=== PATIENT | female | born 1980 | race African-American/Black ===

== ENCOUNTER 2017-02-15 05:39 | Emergency (ER) | payer MEDICAID, OTHER ==
[~2017-02-15] VITALS: Ht 180.3 cm; Wt 98.0 kg
[~2017-02-15 05:39] MED LIST: DEPO400I IM; PROM25TA5 PO; ZITH250T PO
[2017-02-15 05:41] VITALS: BP 139/84; PULSE 89; RESP 16; TEMP 98.5; O2SAT 97
[2017-02-15 05:52] VITALS: BP 132/74; PULSE 79; RESP 16; O2SAT 98
[2017-02-15] MEDS ORDERED: LOMO2.5T PO (06:11)
[2017-02-15] MEDS ORDERED: ZOFR4TAB3 SL (06:11)
[2017-02-15] MEDS ORDERED: DICY10 PO (06:11)
--- NOTE | 2017-02-15 06:11 | PD ---
HPI Chief Complaint: Abdominal Pain Time Seen by Provider: 05:55 Travel History International Travel<30 days: No Contact w/Intl Traveler<30days: No Traveled to known affect area: No History of Present Illness HPI 36 yo F c/o diarrhea and LUQ abdominal pain for approx 6 hours. Onset occurred while patient was asleep. Last PO intake was [place] food, no one else sick at home. No fever. No vomiting. No VD/VB. Pt concerned that symptoms may prevent her from working today. Severity moderate. PFSH Past Medical History Diminished Hearing: No Immunizations Current: Yes Tetanus Vaccination: < 5 Years Influenza Vaccination: Yes ?: Not LMP: 01/16/2017 : 2 Para: 2 Social History Alcohol Use: No Tobacco Use: No Substance Use: No Allergies-Medications (Allergen,Severity, Reaction): Coded Allergies: penicillin G (Unverified Allergy, Intermediate, Rash, 02/15/17) Reported Meds & Prescriptions Reported Meds & Active Scripts Active Lomotil (Diphenoxylate-Atropine) 2.5-0.025 Mg Tab 1 Tab PO Q6H PRN Zofran Odt (Ondansetron Odt) 4 Mg Tab 4 Mg SL Q8HR PRN Bentyl (Dicyclomine HCl) 10 Mg Cap 10 Mg PO QID Review of Systems Except as stated in HPI: all other systems reviewed are Neg General / Constitutional: No: Fever Physical Exam Narrative GENERAL: 36 yo F, WNWD, NAD SKIN: Warm and dry. HEAD: Atraumatic. Normocephalic. EYES: Pupils equal and round. No scleral icterus. No injection or drainage. ENT: No nasal bleeding or discharge. Mucous membranes pink and moist. NECK: Trachea midline. No JVD. CARDIOVASCULAR: Regular rate and rhythm. RESPIRATORY: No accessory muscle use. Clear to auscultation. Breath sounds equal bilaterally. GASTROINTESTINAL: Soft. No TTP at McBurney's point. Negative Urbano's sign. MUSCULOSKELETAL: Extremities without clubbing, cyanosis, or edema. No obvious deformities. NEUROLOGICAL: Awake and alert. No obvious cranial nerve deficits. Motor grossly within normal limits. Five out of 5 muscle strength in the arms and legs. Normal speech. PSYCHIATRIC: Appropriate mood and affect; insight and judgment normal. Data Data Last Documented VS Vital Signs Date Time Temp Pulse Resp B/P (MAP) Pulse Ox O2 Delivery O2 Flow Rate FiO2 02/15/17 06:20 02/15/17 05:52 79 16 98 Room Air 02/15/17 05:41 98.5 Vital Signs Date Time Temp Pulse Resp B/P (MAP) Pulse Ox O2 Delivery O2 Flow Rate FiO2 02/15/17 06:20 02/15/17 05:52 79 16 132/74 (93) 98 Room Air 02/15/17 05:41 98.5 89 16 139/84 (102) 97 Room Air Orders Orders Ed Discharge Order (02/15/17 06:13) MDM Medical Decision Making Medical Screen Exam Complete: Yes Emergency Medical Condition: Yes Medical Record Reviewed: Yes Differential Diagnosis Constipation, Gastritis, Acute Cholecystitis, Biliary Colic, Pancreatitis, GARCIA , Hepatitis, Bowel Obstruction, Cystitis, Mesenteric Ischemia, AAA, Appendicitis , Renal Stone/Hydronephrosis, GERD, perforated viscous Narrative Course Symptoms are quite mild. Scripts as below. Work note per patient's request. Diagnosis Primary Impression: Abdominal pain Qualified Codes: R10.9 - Unspecified abdominal pain Additional Impression: Diarrhea Qualified Codes: R19.7 - Diarrhea, unspecified Med/Other Pt SpecificInfo: Prescription(s) given Scripts Diphenoxylate-Atropine (Lomotil) 2.5-0.025 Mg Tab 1 TAB PO Q6H Y for DIARRHEA, #10 TAB 0 Refills Prov: Blas Soto MD 02/15/17 Ondansetron Odt (Zofran Odt) 4 Mg Tab 4 MG SL Q8HR Y for Nausea/Vomiting, #10 TAB 0 Refills Prov: Blas Soto MD 02/15/17 Dicyclomine (Bentyl) 10 Mg Cap 10 MG PO QID for Bowel Management, #10 CAP 0 Refills Prov: Blas Soto MD 02/15/17 Disposition: 01 DISCHARGE HOME Condition: Stable Blas Soto MD Feb 15, 2017 06:11
== END 2017-02-15 06:28 | disposition home or self-care (01) ==
LOC: NEPC 05:39
DX: R10.9 Unspecified abdominal pain (principal); R19.7 Diarrhea, unspecified; Z79.899 Other long term (current) drug therapy; Z88.0 Allergy status to penicillin
CPT/HCPCS: 99284

== ENCOUNTER 2017-05-23 06:20 | Emergency (ER) | payer OTHER ==
[~2017-05-23] VITALS: Ht 180.3 cm; Wt 115.0 kg
[~2017-05-23 06:20] MED LIST changes: -DEPO400I IM; +DICY10 PO; +LOMO2.5T PO; -PROM25TA5 PO; -ZITH250T PO; +ZOFR4TAB3 SL
[2017-05-23 06:22] VITALS: BP 126/58; PULSE 90; RESP 18; TEMP 97.3; O2SAT 100
[2017-05-23] MEDS ORDERED: SODIUM CHLORID 0.9% 500 ML INJ 500 ML IV ONE (06:45)
[2017-05-23] MEDS ORDERED: MORPHINE SULFATE 2 MG/ML INJ IV PUSH ONE (06:45)
[2017-05-23] MEDS ORDERED: ONDANSETRON HCL 4 MG/2 ML VIAL IV PUSH ONE (06:45)
[2017-05-23] MEDS ORDERED: SODIUM CHLORIDE 0.9% FLUSH 10 ML FLUSH IVF PRN (06:45)
[2017-05-23 06:55] LABS: AUTOMATED NEUTROPHIL # 9.3 TH/MM3 (1.8-7.7); BASOPHIL % 0.4 % (0.0-2.0); EOSINOPHIL % 0.1 % (0.0-4.0); HEMATOCRIT 38.4 % (35.0-46.0); HEMOGLOBIN 12.4 GM/DL (11.6-15.3); LYMPH % 6.1 % (9.0-44.0); LYMPHOCYTE # 0.6 TH/MM3 (1.0-4.8); MEAN CELL VOLUME 79.8 FL (80.0-100.0); MEAN CORPUSCULAR HEMOGLOBIN 25.9 PG (27.0-34.0); MEAN CORPUSCULAR HGB CONC 32.4 % (32.0-36.0); MEAN PLATELET VOLUME 11.2 FL (7.0-11.0); MONO % 3.5 % (0.0-8.0); MONOCYTE # 0.4 TH/MM3 (0-0.9); NEUT % 89.9 % (16.0-70.0); PLATELET COUNT 188 TH/MM3 (150-450); RED BLOOD COUNT 4.81 MIL/MM3 (4.00-5.30); RED CELL DISTRIBUTION WIDTH 13.6 % (11.6-17.2); WHITE BLOOD COUNT 10.4 TH/MM3 (4.0-11.0)
--- NOTE | 2017-05-23 06:57 | PD ---
HPI Chief Complaint: Chest Pain Time Seen by Provider: 06:37 Travel History International Travel<30 days: No Contact w/Intl Traveler<30days: No Traveled to known affect area: No History of Present Illness HPI 36-year-old female patient presents to the ER today with 10 out of 10 epigastric abdominal pains with radiation of the chest starting about an hour prior to arrival. She has been nauseous. She denies any vomiting, diarrhea, fevers, or other issues. She does not know of any exacerbating or alleviating factors. Modifying Factors: None Associated Signs & Symptoms: Epigastric abdominal pains and chest pains Risk Factors: None PFSH Past Medical History Diminished Hearing: No Immunizations Current: Yes ?: Not LMP: 04/23/17 : 2 Para: 2 Social History Alcohol Use: No Tobacco Use: No Substance Use: No Allergies-Medications (Allergen,Severity, Reaction): Coded Allergies: penicillin G (Unverified Allergy, Intermediate, Rash, 05/23/17) Reported Meds & Prescriptions Reported Meds & Active Scripts Active No Active Prescriptions or Reported Medications Review of Systems Except as stated in HPI: all other systems reviewed are Neg Physical Exam Narrative GENERAL: Well-developed middle-aged female patient currently in mild distress. Awake and oriented 3. SKIN: Focused skin assessment warm/dry. HEAD: Atraumatic. Normocephalic. EYES: Pupils equal and round. No scleral icterus. No injection or drainage. ENT: No nasal bleeding or discharge. Mucous membranes pink and moist. NECK: Trachea midline. No JVD. Supple. CARDIOVASCULAR: Regular rate and rhythm. No murmur appreciated. RESPIRATORY: No accessory muscle use. Clear to auscultation. Breath sounds equal bilaterally. GASTROINTESTINAL: Abdomen soft, epigastric tenderness without guarding or rebound, nondistended. Hepatic and splenic margins not palpable. MUSCULOSKELETAL: No obvious deformities. No clubbing. No cyanosis. No edema. NEUROLOGICAL: Awake and alert. No obvious cranial nerve deficits. Motor grossly within normal limits. Normal speech. PSYCHIATRIC: Appropriate mood and affect; insight and judgment normal. Data Data Last Documented VS Vital Signs Date Time Temp Pulse Resp B/P (MAP) Pulse Ox O2 Delivery O2 Flow Rate FiO2 05/23/17 06:22 97.3 90 18 126/58 (80) 100 Room Air Orders Orders Electrocardiogram (05/23/17 06:37) Ckmb (Isoenzyme) Profile (05/23/17 06:37) Complete Blood Count With Diff (05/23/17 06:37) Comprehensive Metabolic Panel (05/23/17 06:37) Magnesium (Mg) (05/23/17 06:37) Prothrombin Time / Inr (Pt) (05/23/17 06:37) Act Partial Throm Time (Ptt) (05/23/17 06:37) Troponin I (05/23/17 06:37) Lipase (05/23/17 06:37) Ecg Monitoring (05/23/17 06:37) Bilateral Bp Monitoring (05/23/17 06:37) Iv Access Insert/Monitor (05/23/17:37) Oximetry (05/23/17:37) Oxygen Administration (05/23/17 06:37) Sodium Chloride 0.9% Flush (Ns Flush) (05/23/17 06:45) Sodium Chlorid 0.9% 500 Ml Inj (Ns 500 M (05/23/17 06:45) Chest, Pa & Lat (05/23/17 06:37) Morphine Inj (Morphine Inj) (05/23/17 06:45) Ondansetron Inj (Zofran Inj) (05/23/17 06:45) Ct Abd/Pel W Iv Contrast(Rout) (05/23/17 06:37) Ed Urine Pregnancytest Poc (05/23/17 06:37) Labs Laboratory Tests Test 05/23/17 06:40 White Blood Count 10.4 TH/MM3 Red Blood Count 4.81 MIL/MM3 Hemoglobin 12.4 GM/DL Hematocrit 38.4 % Mean Corpuscular Volume 79.8 FL Mean Corpuscular Hemoglobin 25.9 PG Mean Corpuscular Hemoglobin Concent 32.4 % Red Cell Distribution Width 13.6 % Platelet Count 188 TH/MM3 Mean Platelet Volume 11.2 FL Neutrophils (%) (Auto) 89.9 % Lymphocytes (%) (Auto) 6.1 % Monocytes (%) (Auto) 3.5 % Eosinophils (%) (Auto) 0.1 % Basophils (%) (Auto) 0.4 % Neutrophils # (Auto) 9.3 TH/MM3 Lymphocytes # (Auto) 0.6 TH/MM3 Monocytes # (Auto) 0.4 TH/MM3 Eosinophils # (Auto) 0.0 TH/MM3 Basophils # (Auto) 0.0 TH/MM3 CBC Comment DIFF FINAL Differential Comment Prothrombin Time 10.5 SEC Prothromb Time International Ratio 1.0 RATIO Activated Partial Thromboplast Time 23.1 SEC MDM Medical Decision Making Medical Screen Exam Complete: Yes Emergency Medical Condition: Yes Medical Record Reviewed: Yes Interpretation(s) EKG shows normal sinus rhythm at a rate of 87 bpm. No signs of acute ST elevations or depressions. Differential Diagnosis Gastritis versus gastroenteritis versus pancreatitis versus ACS Narrative Course Lab work was ordered, chest x-ray and CAT scan ordered. Patient was ordered for morphine, IV fluids and Zofran for symptom relief. Physician Communication Physician Communication Case is signed out to oncoming physician, Dr. Abbott, at 7 AM pending workup. Disposition based on workup. Diagnosis Primary Impression: Abdominal pain Scripts No Active Prescriptions or Reported Meds Condition: Stable Debbi Morocho MD May 23, 2017 06:57
[2017-05-23 07:03] LABS: PROTHROMBIN TIME - PATIENT 10.5 SEC (9.8-11.6)
[2017-05-23 07:21] LABS: ALBUMIN 3.8 GM/DL (3.4-5.0); ALT (GPT) 41 U/L (10-53); AST (GOT) 41 U/L (15-37); BICARBONATE 26.2 MEQ/L (21.0-32.0); BLOOD UREA NITROGEN 13 MG/DL (7-18); CALCIUM 8.8 MG/DL (8.5-10.1); CHLORIDE 106 MEQ/L (98-107); CREATININE 0.79 MG/DL (0.50-1.00); GLOMERULAR FILTRATION RATE 99 ML/MIN (>89); GLUCOSE,RANDOM 99 MG/DL (74-106); MAGNESIUM 1.8 MG/DL (1.5-2.5); SODIUM (NA) 139 MEQ/L (136-145)
[2017-05-23 07:26] LABS: ALKALINE PHOSPHATASE 106 U/L (45-117); TOTAL BILIRUBIN ADULT 0.4 MG/DL (0.2-1.0); TOTAL PROTEIN 8.1 GM/DL (6.4-8.2); TROPONIN I LESS THAN 0.02 NG/ML (0.02-0.05)
[2017-05-23] MEDS ORDERED: IOHEXOL 350 MG/ML 10 ML VIAL (for RAD DIAG) IVCONTRAST ONE (07:52)
--- NOTE | 2017-05-23 08:03 | RADRPT ---
EXAM DATE/TIME: 05/23/2017 07:40 [facility] COMPARISON: No previous studies available for comparison. INDICATIONS : Epigastric abdomen pain today. IV CONTRAST: 80 cc Omnipaque 350 (iohexol) IV ORAL CONTRAST: No oral contrast ingested. RADIATION DOSE: 14.97 CTDIvol (mGy) ; Patient body habitus MEDICAL HISTORY : None SURGICAL HISTORY : None. ENCOUNTER: Initial ACUITY: 1 day PAIN SCALE: 10/10 LOCATION: epigastric abdomen TECHNIQUE: Volumetric scanning of the abdomen and pelvis was performed. Using automated exposure control and ad justment of the mA and/or kV according to patient size, radiation dose was kept as low as reasonably achievable to obtain optimal diagnostic quality images. DICOM format image data is available electro nically for review and comparison. FINDINGS: LOWER LUNGS: Minimal pleural effusions are seen. LIVER: There is a 1.5 cm hypodensity seen at the anterior aspect of the left lobe of the liver. There does a ppear to be a 1.2 cm gallstone present. The gallbladder is not significantly distended. Gallbladder w all is not thickened. SPLEEN: Normal size without lesion. PANCREAS: Within normal limits. KIDNEYS: Normal in size and shape. There is no mass or hydronephrosis. There is a 4 mm nonobstructing left re nal stone seen. ADRENAL GLANDS: Within normal limits. VASCULAR: There is no aortic aneurysm. BOWEL/MESENTERY: The stomach, small bowel, and colon demonstrate no acute abnormality. There is no free intraperitone al air or fluid. ABDOMINAL WALL: Within normal limits. RETROPERITONEUM: There is no lymphadenopathy. There is a prominent left ovarian vein seen to the left of the aorta.. BLADDER: No wall thickening or mass. REPRODUCTIVE: There is a 1.8 cm peripherally dense area seen in the right ovary likely related to a follicle given its size. INGUINAL: There is no lymphadenopathy or hernia. MUSCULOSKELETAL: Within normal limits for patient age. CONCLUSION: 1. 4 mm nonobstructing left renal stone. 2. 1.8 cm suspect a follicle the right ovary. 3. Nonspecific 1.5 cm hepatic mass. Statistically, this likely represents a cyst or hemangioma. Mookie Ahn MD on May 23, 2017 at 7:55 Board Certified Radiologist. This report was verified electronically.
--- NOTE | 2017-05-23 08:03 | RADRPT ---
EXAM DATE/TIME: 05/23/2017 07:49 [facility] COMPARISON: No previous studies available for comparison. INDICATIONS : Chest pain MEDICAL HISTORY : None. SURGICAL HISTORY : None. ENCOUNTER: Initial ACUITY: 1 day PAIN SCORE: 0/10 LOCATION: chest FINDINGS: PA and lateral views of the chest demonstrate the lungs to be symmetrically aerated without evidence of mass, infiltrate or effusion. The cardiomediastinal contours are unremarkable. Osseous structure s are intact. CONCLUSION: No acute disease. Mookie Ahn MD on May 23, 2017 at 8:02 Board Certified Radiologist. This report was verified electronically.
--- NOTE | 2017-05-23 09:13 | EKG ---
Date Performed: 05/23/2017 Time Performed: 06:38:22 PTAGE: 36 years EKG: Sinus rhythm PRECORDIAL LEAD MISPLACEMENT BORDERLINE ECG NO PREVIOUS TRACING DOCTOR: Kaiden Henry Interpretating Date/Time 05/23/2017 09:12:25
[2017-05-23] MEDS ORDERED: PANTOPRAZOLE SODIUM 40 MG VIAL IVP ONE (09:30)
[2017-05-23] MEDS ORDERED: ALUMINUM/MAGNESIUM/SIMETH 30 ML CUP PO ONE (09:30)
[2017-05-23] MEDS ORDERED: LIDOCAINE VISCOUS 2% SOLN 15 ML UDC PO ONE (09:30)
[2017-05-23] MEDS ORDERED: PROT40TA PO (09:34)
--- NOTE | 2017-05-23 09:35 | PD ---
Data Data Last Documented VS Vital Signs Date Time Temp Pulse Resp B/P (MAP) Pulse Ox O2 Delivery O2 Flow Rate FiO2 05/23/17 10:02 05/23/17 06:22 97.3 90 18 100 Room Air Orders Orders Electrocardiogram (05/23/17 06:37) Ckmb (Isoenzyme) Profile (05/23/17 06:37) Complete Blood Count With Diff (05/23/17 06:37) Comprehensive Metabolic Panel (05/23/17 06:37) Magnesium (Mg) (05/23/17 06:37) Prothrombin Time / Inr (Pt) (05/23/17 06:37) Act Partial Throm Time (Ptt) (05/23/17 06:37) Troponin I (05/23/17 06:37) Lipase (05/23/17 06:37) Ecg Monitoring (05/23/17 06:37) Bilateral Bp Monitoring (05/23/17 06:37) Iv Access Insert/Monitor (05/23/17 06:37) Oximetry (05/23/17 06:37) Oxygen Administration (05/23/17 06:37) Sodium Chloride 0.9% Flush (Ns Flush) (05/23/17 06:45) Sodium Chlorid 0.9% 500 Ml Inj (Ns 500 M (05/23/17 06:45) Chest, Pa & Lat (05/23/17 06:37) Morphine Inj (Morphine Inj) (05/23/17 06:45) Ondansetron Inj (Zofran Inj) (05/23/17 06:45) Ct Abd/Pel W Iv Contrast(Rout) (05/23/17 06:37) Ed Urine Pregnancytest Poc (05/23/17 06:37) Iohexol 350 Inj (Omnipaque 350 Inj) (05/23/17 07:52) Pantoprazole Inj (Protonix Inj) (05/23/17 09:30) Al-Mag Hy-Si 40-40-4 Mg/Ml Liq (Mag-Al P (05/23/17 09:30) Lidocaine 2% Viscous (Xylocaine 2% Visco (05/23/17 09:30) Ed Discharge Order (05/23/17 09:48) Labs Laboratory Tests Test 05/23/17 06:40 White Blood Count 10.4 TH/MM3 Red Blood Count 4.81 MIL/MM3 Hemoglobin 12.4 GM/DL Hematocrit 38.4 % Mean Corpuscular Volume 79.8 FL Mean Corpuscular Hemoglobin 25.9 PG Mean Corpuscular Hemoglobin Concent 32.4 % Red Cell Distribution Width 13.6 % Platelet Count 188 TH/MM3 Mean Platelet Volume 11.2 FL Neutrophils (%) (Auto) 89.9 % Lymphocytes (%) (Auto) 6.1 % Monocytes (%) (Auto) 3.5 % Eosinophils (%) (Auto) 0.1 % Basophils (%) (Auto) 0.4 % Neutrophils # (Auto) 9.3 TH/MM3 Lymphocytes # (Auto) 0.6 TH/MM3 Monocytes # (Auto) 0.4 TH/MM3 Eosinophils # (Auto) 0.0 TH/MM3 Basophils # (Auto) 0.0 TH/MM3 CBC Comment DIFF FINAL Differential Comment Prothrombin Time 10.5 SEC Prothromb Time International Ratio 1.0 RATIO Activated Partial Thromboplast Time 23.1 SEC Blood Urea Nitrogen 13 MG/DL Creatinine 0.79 MG/DL Random Glucose 99 MG/DL Total Protein 8.1 GM/DL Albumin 3.8 GM/DL Calcium Level 8.8 MG/DL Magnesium Level 1.8 MG/DL Alkaline Phosphatase 106 U/L Aspartate Amino Transf (AST/SGOT) 41 U/L Alanine Aminotransferase (ALT/SGPT) 41 U/L Total Bilirubin 0.4 MG/DL Sodium Level 139 MEQ/L Potassium Level 3.7 MEQ/L Chloride Level 106 MEQ/L Carbon Dioxide Level 26.2 MEQ/L Anion Gap 7 MEQ/L Estimat Glomerular Filtration Rate 99 ML/MIN Total Creatine Kinase 78 U/L Troponin I LESS THAN 0.02 NG/ML Lipase 110 U/L [facility] Supervised Visit with VINNIE: No Narrative Course Patient CARE assume from Dr. Eduardo at 0700, this is a 36-year-old female presents emergency department with epigastric pain. Agree with Dr. neither symptoms are below the diaphragm. On my initial examination patient sleeping soundly stating that she is still having some discomfort, GI cocktail was ordered as well as Protonix. Basic labs are wholly reassuring including lipase CMP BMP and blood counts, CT of her abdomen pelvis only revealed a small lesion in her liver which is stable for outpatient follow-up. Diagnosis Primary Impression: Abdominal pain Additional Instruction: Discussed with your regular physician or CT findings including a small cyst on your liver that needs to be followed. Med/Other Pt SpecificInfo: Prescription(s) given Scripts Pantoprazole (Protonix) 40 Mg Tab 40 MG PO DAILY for Reflux, #30 TAB 0 Refills Prov: Art Abbott MD 05/23/17 Disposition: DISCHARGE HOME Condition: Stable Art Abbott MD May 23, 2017 09:35
== END 2017-05-23 10:10 | disposition home or self-care (01) ==
LOC: NEPC 06:20
DX: R10.9 Unspecified abdominal pain (principal); R94.31 Abnormal electrocardiogram [ECG] [EKG]
CPT/HCPCS: 71046; 74177; 80053; 82550; 83690; 83735; 84484; 84703; 85025; 85610; 85730; 93005; 96361; 96374; 96375; 99285; C9113; J2270; J2405; J7040; Q9967